=== PATIENT | male | born 1955 | race African-American/Black ===

== ENCOUNTER 2022-05-27 12:24 | Observation (INO) | payer OTHER ==
[2022-05-27 12:56] LABS: Protime INR 0.99
[2022-05-27 13:02] LABS: Absolute Lymphocytes (CBC) 1.1 K/uL (0.7-4.9); Hematocrit 41.6 % (39.6-49.0); MCV 94.6 fL (80-100); MPV 7.9 fL (7.6-11.3)
[2022-05-27] MEDS ORDERED: MORPHINE 2 MG/ML SYR ONE (13:08)
[2022-05-27] MEDS ORDERED: ONDANSETRON 4 MG/2 ML VIAL ONE (13:08)
[2022-05-27 13:12] LABS: ALT/SGPT 20 U/L (12-78); AST/SGOT 13 U/L (15-37); Albumin 3.2 g/dL (3.4-5.0); Alkaline Phosphatase 69 U/L (45-117); BUN Blood Urea Nitrogen 12 mg/dL (7-18); Bicarbonate 29 mmol/L (21-32); Bilirubin Total 0.4 mg/dL (0.2-1.0); Glomerular Filtration Rate 92 ml/min (=/>90); Glucose Level 78 mg/dL (74-106); Magnesium 2.2 mg/dL (1.8-2.4); NT PRO-BNP 42 pg/mL (<125); Protein, Total 6.6 g/dL (6.4-8.2); Sodium Level 139 mmol/L (136-145); Troponin High Sensitivity 6.2 pg/mL (<58.9)
[2022-05-27 13:18] LABS: Bilirubin Direct < 0.1 mg/dL (0-0.2)
--- NOTE | 2022-05-27 13:40 | RAD REPORT ---
EXAM DESCRIPTION: Bear Single View05/27/2022 1:25 pm CLINICAL HISTORY: Chest pain COMPARISON: none FINDINGS: The lungs appear clear of acute infiltrate. The heart is normal size IMPRESSION: No acute abnormalities displayed
--- NOTE | 2022-05-27 13:47 | EDPHYS ---
Physician Documentation [facility] Name: Dashawn Christianson Age: 67 yrs Sex: Male : 1955 Arrival Date: 05/27/2022 Time: 12:25 Bed 8 Private MD: ED Physician Siddhartha Dickson HPI: 05/27 12:29 This 67 yrs old Male presents to ER via EMS with complaints of Chest Pain. cp 12:29 The patient or guardian reports chest pain that is located primarily in the anterior cp chest wall, left. Onset: 2 day(s) ago. 12:29 The pain does not radiate. Associated signs and symptoms: Pertinent positives: left cp shoulder pain, Pertinent negatives: diaphoresis, dizziness, palpitations, shortness of breath, syncope. The chest pain is described as a pressure. Duration: The patient or guardian reports multiple episodes, that wax and wane. 12:30 Patient presents to ED via EMS after being referred from [place] for chest pain. Patient cp given sublingual nitro times 2 and aspirin en route. Patient reports pain improved. Historical: - Allergies: 12:28 Topamax; ph - Immunization history:: Adult Immunizations up to date. - Social history:: Smoking status: Patient denies any tobacco usage or history of. ROS: 12:33 Cardiovascular: Positive for chest pain, Negative for edema, palpitations. cp 12:33 Respiratory: Negative for cough, shortness of breath, wheezing. cp 12:33 Abdomen/GI: Negative for abdominal pain, vomiting, diarrhea, constipation. 12:33 Constitutional: Negative for body aches, chills, fever, poor PO intake. cp 12:33 Eyes: Negative for injury, pain, redness, and discharge. cp 12:33 ENT: Negative for drainage from ear(s), ear pain, sore throat, difficulty swallowing, difficulty handling secretions. 12:33 Back: Negative for radiated pain. 12:33 MS/extremity: Positive for pain, of the left shoulder, Negative for paresthesias. 12:33 Neuro: Negative for altered mental status, headache, numbness, tingling, weakness. 12:33 All other systems are negative. Exam: 12:40 Constitutional: The patient appears in no acute distress, alert, awake, cp non-diaphoretic, non-toxic, well developed, well nourished, obviously ill, uncomfortable. 12:40 Head/Face: Normocephalic, atraumatic. cp 12:40 Eyes: Periorbital structures: appear normal, Conjunctiva: normal, no exudate, no injection, Sclera: no appreciated abnormality, Lids and lashes: appear normal, bilaterally. 12:40 ENT: External ear(s): are unremarkable, Ear canal(s): are normal, clear, TM's: dullness, bilaterally, Nose: is normal, Mouth: Lips: moist, Oral mucosa: pink and intact, moist, Posterior pharynx: Airway: no evidence of obstruction, patent, Tonsils: bilaterally enlarged, with erythema, with exudate, Uvula: slight deviation to right, erythema, that is moderate, exudate, that is moderate, Voice: is hoarse. 12:40 Neck: ROM/movement: is normal, no meningismus, no nuchal rigidity. 12:40 Chest/axilla: Inspection: normal, Palpation: is normal, no crepitus, no tenderness. 12:40 Cardiovascular: Rate: normal, Rhythm: regular, Edema: is not appreciated, JVD: is not cp appreciated. 12:40 Respiratory: the patient does not display signs of respiratory distress, Respirations: cp normal, no use of accessory muscles, no retractions, labored breathing, is not present, Breath sounds: are clear throughout, no decreased breath sounds, no stridor, no wheezing. 12:40 Abdomen/GI: Inspection: abdomen appears normal, Palpation: abdomen is soft and non-tender, in all quadrants. 12:40 Back: pain, is absent, ROM is normal. 12:40 Musculoskeletal/extremity: ROM: limited passive range of motion due to pain, in the left shoulder, Pulses: noted to be 2+ in the left radial artery, the left arm Sensation intact. Joints: the left shoulder displays painful range of motion, tenderness. 12:40 Neuro: Orientation: to person, place \\T\\ time. Mentation: is normal. 13:08 ECG was reviewed by the Attending Physician. cp Vital Signs: 12:25 BP 156 / 108; Pulse 67; Resp 18; Temp 98.0; Pulse Ox 96% on R/A; Weight 92.08 kg; ph Height 6 ft. 0 in. (182.88 cm); 13:20 BP 148 / 92; Pulse 56; Resp 17; Pulse Ox 96% on R/A; ll1 12:25 Body Mass Index 27.53 (92.08 kg, 182.88 cm) ph MDM: 12:27 Patient medically screened. cp 12:30 Differential diagnosis: abnormal EKG, acute myocardial infarction, pericarditis, cp pleurisy, pneumonia, pneumothorax, pulmonary embolus, stable angina, unstable angina. 12:30 The patient was not given aspirin in the Emergency Department. Administered by EMS. cp 13:45 Data reviewed: vital signs, nurses notes, lab test result(s), radiologic studies, CT cp scan. 13:50 Physician consultation: Irineo Mann MD was contacted at 13:50, regarding admission, cp to the telemetry unit. patient's condition. 05/27 12:27 Order name: Basic Metabolic Panel; Complete Time: 13:37 cp 05/27 12:27 Order name: CBC with Diff; Complete Time: 13:37 cp 05/27 13:37 Interpretation: Normal except: WBC 3.3; MN% 13.7; NEUT A 1.6. cp 05/27 12:27 Order name: LFT's; Complete Time: 13:37 cp 05/27 13:37 Interpretation: Normal except: AST 13; ALB 3.2; A/G 0.9. 05/27 12:27 Order name: Magnesium; Complete Time: 13:37 cp 05/27 12:27 Order name: NT PRO-BNP; Complete Time: 13:37 cp 05/27 12:27 Order name: PT-INR; Complete Time: 13:37 cp 05/27 12:27 Order name: Troponin HS; Complete Time: 13:37 05/27 13:38 Interpretation: Reviewed. 05/27 12:29 Order name: COVID-19 SARS RT PCR (Document "Date of Onset" if Symptomatic) cp 05/27 17:00 Order name: Basic Metabolic Panel EDME 05/27 17:00 Order name: Basic Metabolic Panel EDME 05/27 17:00 Order name: CBC with Automated Diff EDME 05/27 17:00 Order name: CBC with Automated Diff EDME 05/27 22:04 Order name: Troponin High Sensitivity EDME 05/28 03:23 Order name: Troponin High Sensitivity EDME 05/27 12:27 Order name: XRAY Chest (1 view); Complete Time: 13:42 05/27 13:42 Interpretation: Report review. 05/27 12:27 Order name: EKG; Complete Time: 12:28 cp 05/27 12:27 Order name: Cardiac monitoring; Complete Time: 12:42 cp 05/27 12:27 Order name: EKG - Nurse/Tech; Complete Time: 12:44 05/27 12:27 Order name: IV Saline Lock; Complete Time: 12:35 05/27 12:27 Order name: Labs collected and sent; Complete Time: 12:35 cp 05/27 12:27 Order name: O2 Per Protocol; Complete Time: 12:35 05/27 12:27 Order name: O2 Sat Monitoring; Complete Time: 12:35 05/27 17:00 Order name: CONS Physician Consult EDME 05/27 17:00 Order name: Heart Healthy EDME 05/27 17:00 Order name: Echo with Doppler EDME 05/28 12:24 Order name: MRI EDMS EC:08 Rate is 60 beats/min. Rhythm is regular. NV interval is normal. QRS interval is cp prolonged at 116 msec. QT interval is normal. T waves are Inverted in leads II, III, aVF, aVR, V5, V6. Interpreted by me. Reviewed by me. Administered Medications: 13:20 Drug: morphine 2 mg Route: IVP; Infused Over: 4 mins; Site: right antecubital; ll1 16:12 Follow up: Response: No adverse reaction ll1 13:20 Drug: Zofran (Ondansetron) 4 mg Route: IVP; Site: right antecubital; ll1 16:12 Follow up: Response: No adverse reaction ll1 17:20 Drug: Ketorolac 15 mg Route: IVP; Site: right antecubital; ll1 22:50 Follow up: Response: No adverse reaction as6 Disposition: 05/28 14:38 Co-signature as Attending Physician, Siddhartha Dickson MD. rn Disposition Summary: 05/27/22 13:46 Hospitalization Ordered Hospitalization Status: Observation cp Provider: Irineo Mann cp Condition: Stable cp Problem: new cp Symptoms: have improved cp Bed/Room Type: Standard cp Location: [facility] ER HOLD(05/27/22 18:54) Room Assignment: ERHOLD-(05/27/22 18:54) cg Diagnosis - Chest pain, unspecified cp Forms: - Medication Reconciliation Form cp - SBAR form cp Signatures: Dispatcher [employer] EDSiddhartha Lazar MD MD rn Hall, Patricia RN RN Terrance Schuler PA PA cp Asmita Antonio RN RN cg Matilde Ibrahim RN RN ll1 Bobby Yu RN as6 Corrections: (The following items were deleted from the chart) 05/27 18:54 13:46 Telemetry/MedSurg (observation) cp cg : 13:46 cp cg 05/28 16:20 05/27 14:10 Physician consultation: Mary Ann MD was contacted at 14:10, regarding cp consult, patient's condition, and will see patient in ED, later today, cp
--- NOTE | 2022-05-27 13:47 | ER ---
Nurse's Notes [facility] Day Name: Dashawn Christianson Age: 67 yrs Sex: Male : 1955 Arrival Date: 05/27/2022 Time: 12:25 Bed 8 Private MD: Diagnosis: Chest pain, unspecified Presentation: 05/27 12:25 Chief complaint: EMS states: Pt was at [facility] for L shoulder pain, hoping to get MRI, ph informed staff there that he had been having chest pain for " 'a few days" as well, denies SOB or nausea, chest pain relieved after nitro x 2, BP after nitro 170/100, HR 80, Spo2 99% RA, hx of HTN. Coronavirus screen: Vaccine status: Patient reports receiving the 2nd dose of the covid vaccine. Ebola Screen: No symptoms or risks identified at this time. Initial Sepsis Screen: Does the patient meet any 2 criteria? No. Patient's initial sepsis screen is negative. Does the patient have a suspected source of infection? No. Patient's initial sepsis screen is negative. Risk Assessment: Do you want to hurt yourself or someone else? Patient reports no desire to harm self or others. Onset of symptoms was May 27, 2022. 12:25 Method Of Arrival: EMS: [facility] ph 12:25 Acuity: PARVIN 3 ph Triage Assessment: 12:29 General: Appears in no apparent distress. comfortable, slender, well groomed, Behavior ph is calm, cooperative, appropriate for age, Denies fever, feeling ill. Pain: Complains of pain in anterior aspect of left upper chest. Pain: Complains of pain in left posterior aspect of neck and left lateral aspect of neck Pain radiates to anterior aspect of left shoulder and posterior aspect of left shoulder. Neuro: Tanner Agitation-Sedation Scale (RASS): 0 - Alert and Calm Level of Consciousness is awake, alert, obeys commands, Oriented to person, place, time, situation. Cardiovascular: Reports chest pain, Denies fatigue, lightheadedness, nausea, shortness of breath, Rhythm is sinus rhythm. Respiratory: Airway is patent Respiratory effort is even, unlabored. Derm: Skin is intact, is healthy with good turgor, Skin is pink, warm \\T\\ dry. Musculoskeletal: Circulation, motion, and sensation intact. Range of motion: intact in all extremities. Historical: - Allergies: 12:28 Topamax; ph - Immunization history:: Adult Immunizations up to date. - Social history:: Smoking status: Patient denies any tobacco usage or history of. Screenin:28 Abuse screen: Denies threats or abuse. Denies injuries from another. Nutritional ph screening: No deficits noted. Tuberculosis screening: No symptoms or risk factors identified. Fall Risk None identified. Assessment: 13:21 Reassessment: No changes from previously documented assessment. Patient and/or family ll1 updated on plan of care and expected duration. Pain level reassessed. Patient is alert, oriented x 3, equal unlabored respirations, skin warm/dry/pink. 05/28 12:59 Reassessment: D/C FROM ER HOLD. bp Vital Signs: 05/27 12:25 BP 156 / 108; Pulse 67; Resp 18; Temp 98.0; Pulse Ox 96% on R/A; Weight 92.08 kg; ph Height 6 ft. 0 in. (182.88 cm); 13:20 BP 148 / 92; Pulse 56; Resp 17; Pulse Ox 96% on R/A; ll1 12:25 Body Mass Index 27.53 (92.08 kg, 182.88 cm) ph ED Course: 12:25 Patient arrived in ED. ph 12:25 Terrance Vora PA is PHCP. cp 12:25 Siddhartha Dickson MD is Attending Physician. cp 12:28 Triage completed. ph 12:28 Arm band placed on Patient placed in an exam room, on a stretcher, on library monitor, ph on pulse oximetry. 12:29 Patient has correct armband on for positive identification. Bed in low position. Call ph light in reach. Client placed on continuous cardiac and pulse oximetry monitoring. NIBP monitoring applied. 12:29 Patient maintains SpO2 saturation greater than 95% on room air. ph 12:35 Matilde Ibrahim, LELO is Primary Nurse. ll1 13:27 XRAY Chest (1 view) In Process Unspecified. EDMS 13:45 Irineo Mann MD is Hospitalizing Provider. cp 22:49 No provider procedures requiring assistance completed. Patient admitted, IV remains in as6 place. 05/28 07:05 Primary Nurse role handed off by Matilde Ibrahim, LELO bp 07:05 Reinier Brown, RN is Primary Nurse. bp Administered Medications: 05/27 13:20 Drug: morphine 2 mg Route: IVP; Infused Over: 4 mins; Site: right antecubital; ll1 16:12 Follow up: Response: No adverse reaction ll1 13:20 Drug: Zofran (Ondansetron) 4 mg Route: IVP; Site: right antecubital; ll1 16:12 Follow up: Response: No adverse reaction ll1 17:20 Drug: Ketorolac 15 mg Route: IVP; Site: right antecubital; ll1 22:50 Follow up: Response: No adverse reaction as6 Medication: 12:29 VIS not applicable for this client. ph Outcome: 13:46 Decision to Hospitalize by Provider. cp 22:49 Admitted to ER Hold. Please see [facility] for further documentation. as6 22:49 Condition: stable 22:49 Instructed on the need for admit. 05/28 12:59 Patient left the ED. bp Signatures: Dispatcher [employer] EDSugar Nickerson RN RN ph Terrance Vora PA PA Reinier Plummer, RN RN bp Matilde Ibrahim RN RN ll1 Bobby Yu RN RN as6
[2022-05-27] MEDS ORDERED: ACETAMINOPHEN 500 MG TAB PO PRN (16:56)
[2022-05-27] MEDS ORDERED: MORPHINE 4 MG/ML SYR IV PRN (16:56)
[2022-05-27] MEDS ORDERED: KETOROLAC 30 MG/ML INJ ONE (17:18)
[2022-05-27 18:43] VITALS: BMI 27.5
[2022-05-27] MEDS ORDERED: PIPERACIL/TAZO 4.5 GM VIAL IV ONE (19:18)
[2022-05-27] MEDS ORDERED: NA CHLORIDE 0.9% 100 ML ONE (19:18)
[2022-05-27] MEDS ORDERED: NA CHLORIDE 0.9% 4,000 ML ONE (19:18)
[2022-05-27] MEDS ORDERED: ACETAMINOPHEN 500 MG TAB ONE (19:18)
--- NOTE | 2022-05-27 20:27 | P.HP ---
Certification for Inpatient Patient admitted to: Observation With expected LOS: <2 Midnights Patient will require the following post-hospital care: None Practitioner: I am a practitioner with admitting privileges, knowledge of patient current condition, hospital course, and medical plan of care. Services: Services provided to patient in accordance with Admission requirements found in Title 42 Section 412.3 of the Code of Federal Regulations Patient History Date of Service: 05/27/22 Reason for admission: left shoulder pain /chest pain rule out acute coronary syndrome History of Present Illness: Patient is a 67-year-old gentleman who came into the hospital with chest discomfort. Patient was also having pain in his left shoulder. He states that this has been going on for the last couple of days. He normally gets his workup at the [facility]. Patient had inverted T-waves on his EKG. Decision was made to admit the hospital for observation. His initial troponins are negative. We will go ahead and repeat his troponins. Currently his chest pain is resolved. Pain is mainly in the left shoulder. Possible rotator cuff injury. Patient w ill be worked up for further evaluation. Allergies topiramate [From Topamax] Allergy (Unverified 05/27/22 17:25) Itching - Past Medical/Surgical History Has patient received pneumonia vaccine in the past: No Diabetic: No Past Surgical History: Patient denies surgical history - Family History Father Family History: Reviewed- Non-Contributory - Social History Smoking Status: Never smoker Alcohol use: No CD- Drugs: No Review of Systems 10-point ROS is otherwise unremarkable Physical Examination - Vital Signs Temperature: 97.1 F Blood Pressure: 167/93 Pulse: 57 Respirations: 16 Pulse Ox (%): 97 - Physical Exam General: Alert, In no apparent distress, Oriented x3 HEENT: Atraumatic, PERRLA, Mucous membr. moist/pink, EOMI, Sclerae nonicteric Neck: Supple, 2+ carotid pulse no bruit, No LAD, Without JVD or thyroid abnormality Respiratory: Clear to auscultation bilaterally, Normal air movement Cardiovascular: Regular rate/rhythm, Normal S1 S2 Gastrointestinal: Normal bowel sounds, No tenderness Musculoskeletal: Tenderness ( Left shoulder on rotation) Integumentary: No rashes Neurological: Normal gait, Normal speech, Normal strength at 5/5 x4 extr, Normal tone, Normal affect Lymphatics: No axilla or inguinal lymphadenopathy - Studies Laboratory Data (last 24 hrs) 05/27/22 12:40: PT 10.9, INR 0.99 05/27/22 12:40: WBC 3.3 L, Hgb 13.7, Hct 41.6, Plt Count 188 05/27/22 12:40: Sodium 139, Potassium 4.0, BUN 12, Creatinine 0.91, Glucose 78, Magnesium 2.2, Total Bilirubin 0.4, AST 13 L, ALT 20, Alkaline Phosphatase 69 Assessment & Plan - Problems (Diagnosis) (1) Chest pain, rule out acute myocardial infarction Current Visit: Yes Status: Acute (2) Left shoulder pain Current Visit: Yes Status: Acute - Plan 1. Serial troponins and EKG 2. Appreciate Cardiology consultation 3. Echocardiogram 4. Anti-platelet therapy, anti coagulation, beta-sofy, statin, and O2 as needed 5. IV morphine for pain 6. Nitro p.r.n. Discharge Plan: Home Plan to discharge in: 24 Hours - Advance Directives Does patient have a Living Will: No Does patient have a Durable POA for Healthcare: No - Code Status/Comfort Care Code Status Assessed: Yes Code Status: Full Code Critical Care: No Time Spent Managing PTS Care (In Minutes): 45
[2022-05-27] MEDS ORDERED: METOPROLOL TAR 25 MG TAB ONE (20:56)
[2022-05-27] MEDS: METOPROLOL TAR 25 MG TAB PO SCH (21:00)
[2022-05-27 21:26] VITALS: O2SAT 97
[2022-05-27] MEDS: LOSARTAN POTASSIUM 50 MG TABLET PO SCH (22:21)
[2022-05-28 03:11] LABS: Absolute Lymphocytes (CBC) 1.6 K/uL (0.7-4.9); Hematocrit 40.4 % (39.6-49.0); Lymphocytes % 38.7 % (15.3-44.8); MCV 93.8 fL (80-100); MPV 8.1 fL (7.6-11.3); RBC Red Blood Cell Count 4.31 M/uL (4.33-5.43)
[2022-05-28 03:16] LABS: Potassium 4.1 mmol/L (3.5-5.1)
[2022-05-28 06:14] VITALS: TEMP 97.7
[2022-05-28] MEDS ORDERED: PNEUMOCOCCAL VACCINE 0.5 ML IMVAC ONE (08:00)
--- NOTE | 2022-05-28 08:55 | EKG ---
Test Date: 2022-05-27 Test Time: 13:06:34 Police Liaison Officer: VANDANA MEASUREMENT RESULTS: Intervals: Rate: 60 NJ: 178 QRSD: 116 QT: 408 QTc: 408 [place]: P: 53 NJ: 178 QRS: -76 T: -41 INTERPRETIVE STATEMENTS: Normal sinus rhythm Pulmonary disease pattern Left anterior fascicular block Septal infarct, age undetermined ST & T wave abnormality, consider inferolateral ischemia Abnormal ECG No previous ECG available for comparison Electronically Signed On 05-28-22 08:52:27 CDT by Alejandro Soni
[2022-05-28 08:56] VITALS: BP 149/93
[2022-05-28] MEDS: METOPROLOL TAR 25 MG TAB PO SCH (09:00)
[2022-05-28] MEDS: LOSARTAN POTASSIUM 50 MG TABLET PO SCH (09:00)
[2022-05-28] MEDS ORDERED: ENOXAPARIN 40 MG/0.4 ML SQ SCH (09:00)
[2022-05-28] MEDS ORDERED: ASPIRIN EC 81 MG TAB PO SCH (09:00)
[2022-05-28] MEDS ORDERED: ASPIRIN EC 81 MG TAB PO ONE (10:44)
[2022-05-28] MEDS ORDERED: LOSARTAN POTASSIUM 50 MG TABLET ONE (10:44)
[2022-05-28] MEDS ORDERED: METOPROLOL TAR 25 MG TAB ONE (10:44)
[2022-05-28] MEDS ORDERED: ENOXAPARIN 40 MG/0.4 ML SQ ONE (10:45)
--- NOTE | 2022-05-28 12:08 | CON ---
Date of Consultation: 05/28/[address] Mann on 05/27/2022 with chest pain. I saw the patient on 05/28/2022. History Of Present Illness: Mr. Christianson is 67. He has a history of hypertension. No previous cardia c history otherwise. He is very physically active. He is a retired [employer] officer. Came in with atypical sharp chest pain that lasted few minutes. He had some left shoulder pain as well as left th igh pain. No nausea, vomiting, diaphoresis, PND, orthopnea, pedal edema, palpitations, or syncope. He was hypertensive when he came in, EKG showed LVH. Chest x-ray is negative. Troponin was negative . The patient is requesting to go home. He follows up with [facility]. Past Medical History: Hypertension. Allergies: INCLUDE TOPAMAX. Review of Systems: Negative. Social History: Negative. Family History: He has a family history of CHF, hypertension, and diabetes. Physical Examination: General: Very pleasant, no acute distress. Vital Signs: Blood pressure is 150/96, sinus rhythm. HEENT: Negative. Neck: Supple with no bruit. Chest: Clear. Cardiac: Normal rhythm. Positive S4 gallops. Abdomen: Benign. Extremities: Revealed no clubbing, cyanosis, or edema. Diagnostic Data: Within normal limits. Impression And Plan: Atypical chest pain in a patient with family history of heart disease and hyper tension. Negative troponin, negative EKG, negative chest x-ray. I think his pain is mostly musculos keletal. I suggested a stress test on him, but he stated that he is very physically active and he do es not have any symptoms with his exertion and he wanted to basically follow up at the [facility] and decide what to do later. From my standpoint, I agree with him going home. I think he needs to have his blood pressure medication adjusted. Case was discussed with Dr. Mann. JUSTYN/SARAH Voice ID: [id number] Report ID: [id number]
--- NOTE | 2022-05-28 12:23 | RAD REPORT ---
EXAM DESCRIPTION: MRI - Shoulder Left Wo Cont - 05/28/2022 12:09 pm CLINICAL HISTORY: Chest pain/shoulder pain COMPARISON: No comparisons TECHNIQUE: Axial PF fat sat, paracoronal PD FS, T1 weighted and T2 weighted sequences obtained. Para sagittal T2 FS and PD FS also obtained. FINDINGS: Approximately 2 x 1.5 centimeter area of clustered degenerative cysts are present in the s uperolateral humeral head near the supraspinatus attachment site. These have the appearance of degene rative signal change and not acute traumatic injury or neoplastic injury. No marrow edema or marrow r eplacing process seen. No degenerative change or spurring seen at the AC joint. Acromial humeral joint space is normal range . Glenoid labrum degenerative signal is present. Tear of the labrum is not confirmed. Infraspinatus and subscapularis tendons are intact. No acute findings seen. Signal abnormality is present in the supraspinatus tendon without disruption of the bursa or humeral articular margins. No full-thickness or partial-thickness tendon tear identified. IMPRESSION: Tendonitis and/or degenerative signal in the supraspinatus tendon without full-thickness or partial-thickness tear identifiable. Subcortical degenerative cystic changes are seen in the superolateral humeral head near the supraspin atus attachment. Glenoid labrum degenerative signal without tear identified.
--- NOTE | 2022-05-28 23:54 | P.DS ---
Discharge Date: 05/28/22 Disposition: ROUTINE DISCHARGE Discharge Condition: GOOD Reason for Admission: left shoulder pain /chest pain rule out acute coronary syndrome - Problems (1) Chest pain, rule out acute myocardial infarction Status: Acute (2) Left shoulder pain Status: Acute Brief History of Present Illness: Patient is a 67-year-old gentleman who came into the hospital with chest discomfort. Patient was also having pain in his left shoulder. He states that this has been going on for the last couple of days. He normally gets his workup at the [facility] Patient had inverted T-waves on his EKG. Decision was made to admit the hospital for observation. His initial troponins are negative. We will go ahead and repeat his troponins. Currently his chest pain is resolved. Pain is mainly in the left shoulder. Possible rotator cuff injury. Patient will be worked up for further evaluation. Hospital Course: Patient has done well during hospital stay. Patient does not want a stress test. Echocardiogram with normal ejection fraction. Left shoulder MRI revealed tendinitis. Patient clinically doing well and stable for discharge. Vital Signs/Physical Exam: Temp Pulse Resp BP Pulse Ox 97.7 F 69 16 149/93 H 94 05/28/22 04:00 05/28/22 08:00 05/28/22 08:00 05/28/22 08:00 05/28/22 08:00 General: Alert, In no apparent distress, Oriented x3 Laboratory Data at Discharge: WBC 4.2 K/uL (4.3-10.9) L D 05/28/22 02:48 Hgb 13.8 g/dL (13.6-17.9) 05/28/22 02:48 Hct 40.4 % (39.6-49.0) 05/28/22 02:48 Plt Count 186 K/uL (152-406) 05/28/22 02:48 PT 10.9 SECONDS (9.5-12.5) 05/27/22 12:40 INR 0.99 05/27/22 12:40 Sodium 141 mmol/L (136-145) 05/28/22 02:48 Potassium 4.1 mmol/L (3.5-5.1) 05/28/22 02:48 BUN 15 mg/dL (7-18) 05/28/22 02:48 Creatinine 0.85 mg/dL (0.55-1.3) 05/28/22 02:48 Glucose 87 mg/dL (74-106) 05/28/22 02:48 Magnesium 2.2 mg/dL (1.8-2.4) 05/27/22 12:40 Total Bilirubin 0.4 mg/dL (0.2-1.0) 05/27/22 12:40 AST 13 U/L (15-37) L 05/27/22 12:40 ALT 20 U/L (12-78) 05/27/22 12:40 Alkaline Phosphatase 69 U/L (45-117) 05/27/22 12:40 Home Medications: Losartan Potassium [Cozaar*] 50 mg PO BID #60 tablet 05/28/22 New Medications: Losartan Potassium [Cozaar*] 50 mg PO BID #60 tablet Physician Discharge Instructions: OK TO DC IV AND DC HOME FOLLOW-UP WITH PRIMARY CARE PROVIDER IN 1-2 WEEKS FOLLOW-UP WITH CARDIOLOGY IN 1-2 WEEKS RETURN TO THE ER IF symptoms worsen CALL DR. SMALLWOOD AT [phone] IF ANY QUESTIONS REGARDING HOSPITAL STAY. PLEASE CALL THE FLOOR AT [phone] IF ANY MEDICATION OR NURSING QUESTIONS. Diet: AHA Activity: Fall precautions Followup: NONE,NONE [Primary Care Provider] - Time spent managing pt's care (in minutes): 35
--- NOTE | 2022-05-29 07:40 | ECHO ---
HEIGHT: 6 ft 0 in WEIGHT: 202 lb 0 oz DATE OF STUDY: 05/28/[address]: Irineo Mann MD 2-DIMENSIONAL: YES M.MODE: YES DOPPLER: YES COLOR FLOW: YES TDS: NO PORTABLE: YES DEFINITY: NO BUBBLE STUDY: NO DIAGNOSIS: CHEST PAIN CARDIAC HISTORY: CATHERIZATION: NO SURGERY: NO PROSTHETIC VALVE: NO PACEMAKER: NO MEASUREMENTS (cm) DIASTOLIC (NORMALS) SYSTOLIC (NORMALS) IVSd 1.0 (0.6-1.2) LA Diam 3.1 (1.9-4.0) LVEF 66% LVIDd 4.7 (3.5-5.7) LVIDs 3.0 (2.0-3.5) %FS 36% LVPWd 1.2 (0.6-1.2) Ao Diam 3.1 (2.0-3.7) 2 DIMENSIONAL ASSESSMENT: RIGHT ATRIUM: NORMAL LEFT ATRIUM: NORMAL RIGHT VENTRICLE: NORMAL LEFT VENTRICLE: NORMAL TRICUSPID VALVE: NORMAL MITRAL VALVE: NORMAL PULMONIC VALVE: NORMAL AORTIC VALVE: NORMAL PERICARDIAL EFFUSION: NONE AORTIC ROOT: NORMAL LEFT VENTRICULAR WALL MOTION: NORMAL DOPPLER/COLOR FLOW: NORMAL COMMENTS: NORMAL 2D ECHOCARDIOGRAM WITH DOPPLER. NO WALL MOTION ABNORMALITY. NO EFFUSION. TECHNOLOGIST: Roxana DUTTA
== END 2022-05-28 13:00 | disposition home or self-care (01) ==
LOC: ER 12:24 → ERHOLD 16:56
PROVIDERS: ADMIT Hospitalist; ATTEND Hospitalist
DX: R07.89 Other chest pain (principal); M77.8 Other enthesopathies, not elsewhere classified; I10 Essential (primary) hypertension; Z20.822 Contact with and (suspected) exposure to COVID-19; Z88.8 Allergy status to other drugs, medicaments and biological substances; Z82.49 Family history of ischemic heart disease and other diseases of the circulatory system; Z83.3 Family history of diabetes mellitus
CPT/HCPCS: 36415; 71045; 80048; 80076; 83735; 83880; 84484; 85025; 85610; 93005; 93306; 96374; 96375; 99285; G0378; J1650; J2270; J2405; J7030; U0003